=== PATIENT | female | born 1955 | race Caucasian/White ===

== ENCOUNTER 2021-03-12 15:50 | Emergency (ER) | payer OTHER, SELFPAY ==
[2021-03-12 15:50] VITALS: BP 118/69; PULSE 77; RESP 16; TEMP 36.8; O2SAT 95; BMI 40.6
[2021-03-12 16:00] VITALS: BP 134/65; PULSE 71; RESP 16; O2SAT 96
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
--- NOTE | 2021-03-12 16:15 | PC.NURSE ---
PT to CT
--- NOTE | 2021-03-12 16:37 | PC.NURSE ---
PT returned from CT
[2021-03-12 16:39] VITALS: BP 114/56; PULSE 68; RESP 16; O2SAT 95
[2021-03-12 16:40] VITALS: BP 114/56; PULSE 68; RESP 16; O2SAT 98
[2021-03-12 17:00] VITALS: BP 127/62; PULSE 66; RESP 17; O2SAT 97
[2021-03-12 17:23] VITALS: BP 127/62; PULSE 69; RESP 16; TEMP 36.8; O2SAT 94
== END 2021-03-12 17:25 | disposition home or self-care (01) ==
PROVIDERS: Emergency Provider Family Medicine; PCP Family Medicine
DX: M54.2 Cervicalgia (principal); M25.551 Pain in right hip; V43.62XA Car passenger injured in collision with other type car in traffic accident, initial encounter; Y92.414 Local residential or business street as the place of occurrence of the external cause
CPT/HCPCS: 70450; 71250; 72125; 73502; 99282